=== PATIENT | female | born 1995 | race Caucasian/White ===

== ENCOUNTER → 2019-04-26 15:44 | Outpatient (CLI) | payer BC, SELFPAY ==
[2019-04-26 18:01] LABS: T4 Free Direct 1.06 ng/dL (0.76-1.46); Thyroid Stim Hormone (TSH) 1.88 uIU/mL (0.358-3.74)
== END ==
PROVIDERS: Family Provider Family Medicine; PCP Family Medicine; Referring Provider Family Medicine; Visit Provider Family Medicine
DX: R63.5 Abnormal weight gain (principal)
CPT/HCPCS: 36415; 84439; 84443